=== PATIENT | female | born 1965 | race Caucasian/White ===

== ENCOUNTER → 2019-12-08 09:56 | Outpatient (CLI) | payer BC, SELFPAY ==
--- NOTE | 2019-12-08 | CA_ITS ---
APPROVED REPORT Exam: Pharmacologic Technologist: Wendy Jackson Ht: 5 ft 4 in Wt: 200 lbs BSA: 1.96 m2 HR: 78 bpm BP: 117/67 mmHg Medical History Medications: Asa,,,,, Gabapentin,,,,, Vitamin C,,,,, Fish Oil,,,,, Losartan,,,,, Calcium,,,,, Diclofenac,,,,, Olanzapine,,,,, PaROXETINE,,,,, Phentermine,,,,, RoSovastatin,,,,, Stress Test Details Test: LEXISCAN HR Resting HR: 77 bpm Max Heart Rate (APMHR): 164 bpm Max HR Achieved: 110 bpm Target HR (85% APMHR): 139 bpm % of APMHR: 67 Recovery HR: 91 bpm BP Resting BP: 117.0/67.0 mmHg Max BP: 150.0/83.0 mmHg Recovery BP: 141.0/82.0 mmHg ECG Clinical Exercise duration: 04:00 min Highest Stage Achieved: Exercise capacity: 1.0 METs Stress ECG Conclusion Resting ECG: Sinus rhythm, right bundle branch block, abnormal. Lexiscan portion complete. Patient complained of shortness of breath, dizziness at peak infusion. Symptoms: Shortness of breath and dizziness at peak infusion. Resolved in recovery. No chest pain. Arrhythmias/Ectopy: Occasional PVC. Occasional PAC. ST-T Changes: Less than 1.[address] depression. Conclusion: Images to follow. Electronically signed by : Gomez Gayle, 12/08/2019 19:08:07
--- NOTE | 2019-12-08 09:58 | CA_ITS ---
APPROVED REPORT EXAM: Comprehensive 2D, Doppler, and color-flow Echocardiogram Painter Drum: Neelima Ortiz CRT Ht: 5 ft 4 in Wt: 206lbs BSA: 1.98 BP: 118/54 mmHg Indications: LEFT MASTECTOMY, BREAST CA 2005, UTERINE CA 2018, HTN,HLD 2D Dimensions LVOT 1.81 cm (M/F) 1.5-2.5 M-Mode Dimensions RVDd 2.01 cm (0.9-2.6) LVDd 4.08 cm (3.5-5.7) LVDs 2.77 cm (3.5-5.7) IVSd 1.70 cm (0.6-1.1) PWd 1.07 cm (0.6-1.1) EF (Teich) 60.80% FS 32.10% EDV (Teich) 73.40 mL ESV (Teich) 28.80 mL LV Diastology E/A Ratio 1.03 Mitral Valve MV A Velocity 83.00 (40-130 cm/s) Left Ventricle Left atrium is mildly enlarged, left ventricle is normal size, mild concentric left ventricular hypertrophy, visually estimated ejection fraction 55% with no regional wall motion abnormality, endocardial surfaces are poorly visualized. Diastolic parameters are inconclusive. Right Ventricle Right atrium and right ventricular normal size and contractility. Aortic Valve Aortic valve is minimally thickened and fibrosed, there is no aortic stenosis or aortic insufficiency. Mitral Valve Mitral valve is grossly normal, there is mild mitral regurgitation. Tricuspid Valve Tricuspid valve is grossly normal, there is mild tricuspid regurgitation. Tricuspid regurgitation jet velocity is inadequate for calculation of the right ventricular systolic pressure. Pulmonic Valve Pulmonic valve is poorly visualized. Great Vessels Aortic root is normal size. Pericardium No significant pericardial effusion noted. Conclusion 1. Mildly enlarged left atrium, normal left ventricular size, mild concentric left ventricular hypertrophy, visually estimated ejection fraction 55% with no regional wall motion abnormality. Diastolic parameters are inconclusive. 2. Mild mitral and tricuspid regurgitation. 3. No significant pericardial effusion noted. Electronically signed by : Gomez Gayle, 12/09/2019 06:20:41
--- NOTE | 2019-12-08 10:55 | NM_ITS ---
APPROVED REPORT Exam: Nuclear Stress Test Indication: CAD, HTN, ANGINA, DYSPNEA, HYPERLIPIDEMIA, FM. HX., C.P., ARISTIDES Patient Location: ANGINA Stress Tech: Wendy Jackson NM Tech:Jessica Singleton, ARRT, RT (R)(N) Ht: 5 ft 4 in Wt: 200 lbs Bra Size: 38C HR: 78 bpm BP: 117/67 mmHg BSA: 1.96 m2 BMI: 34.3 History: CAD, HTN, ANGINA, DYSPNEA, HYPERLIPIDEMIA, FM. HX., C.P., MONISHA Procedure: Patient received a 0.4 mg of intravenous Lexiscan, resting heart rate 78 bpm, resting blood pressure 117/67 mmHg, with Lexiscan maximum heart rate achived was 106 bpm which is Less than 85 % of the maximum predicted heart rate and blood pressure was 150/83 mmHg. SOB Electrocardiogram Resting electrocardiogram showed sinus rhythm right ventricular conduction delay, with Lexiscan there is less than 1.[address] segment depression noted from the baseline EKG. The EKG portion of the Lexiscan Myoview is nondiagnostic. Cardiac Stress and Resting SPECT Images: Cardiac Stress and Resting SPECT images were obtained using technetium 99m Myoview 30.2 mCi stress and 10.80 mCi at rest. Gated SPECT with analysis of segmental wall motion and calculation of the ejection fraction also done. Cardiac stress and resting SPECT images show uniform myocardial activity without segmental perfusion abnormality, computer derived ejection fraction is over 65% with no regional wall motion abnormality, right ventricle is normal size and contractility. Conclusion: 1. The EKG portion of the Lexiscan Myoview is nondiagnostic. 2. No scintigraphic evidence of reversible ischemia seen, computer derived ejection fraction is over 65% with no regional wall motion abnormality, right ventricle is normal size and contractility. 3. Normal Lexiscan Myoview study. Electronically signed by : Gomez Gayle, 12/08/2019 19:16:42
--- NOTE | 2019-12-08 12:42 | HMH.ITSHM ---
Current Home Medications as stated by this patient Dhara Parekh or technical services representative. []ASA DICLOFENAC LOSARTAN PAROXETINE GABAPENTIN ORANZAPINE PHENTERMINE OMEPRAZOLE ROSUVASTATIN VITMAIN C FISH OIL CALCIUM VITAMIN B BIOTIN DICYCLOMINE
== END ==
PROVIDERS: PCP Family Medicine; Visit Provider Internal Medicine Cardiovascular Disease
DX: G47.33 Obstructive sleep apnea (adult) (pediatric) (principal); R06.83 Snoring; R40.0 Somnolence; R06.00 Dyspnea, unspecified; I20.8 Other forms of angina pectoris; I25.10 Atherosclerotic heart disease of native coronary artery without angina pectoris; I25.2 Old myocardial infarction; E78.5 Hyperlipidemia, unspecified; I10 Essential (primary) hypertension; Z82.49 Family history of ischemic heart disease and other diseases of the circulatory system; Z86.718 Personal history of other venous thrombosis and embolism; Z87.891 Personal history of nicotine dependence
CPT/HCPCS: 78452; 93017; 93306; A9502; G0399; J2785

== ENCOUNTER → 2019-12-11 12:17 | Outpatient (CLI) | payer BC, SELFPAY ==
[2019-12-11 13:31] LABS: Alanine Aminotransferase 44 U/L (12-78); Albumin Level 3.6 gm/dL (3.4-5.0); Alkaline Phosphatase 95 U/L (46-116); Aspartate Amino Transferase 27 U/L (15-37); Bilirubin,Direct 0.2 mg/dL (0.0-0.2); Bilirubin,Indirect 0.6 mg/dL (0.0-0.9); Bilirubin,Total 0.8 mg/dL (0.2-1.0); Cholesterol 127 mg/dL (140-200); HDL Cholesterol 42 mg/dL (29-89); LDL Cholesterol 57 mg/dL (0-130); Total Protein,Serum 6.8 gm/dL (6.4-8.2); Triglycerides 139 mg/dL (30-200); VLDL Cholesterol 28 mg/dL (0-40)
== END ==
PROVIDERS: Visit Provider Internal Medicine Cardiovascular Disease
DX: E78.5 Hyperlipidemia, unspecified (principal); I10 Essential (primary) hypertension; I20.8 Other forms of angina pectoris; I25.10 Atherosclerotic heart disease of native coronary artery without angina pectoris; I25.2 Old myocardial infarction; R06.00 Dyspnea, unspecified; R06.83 Snoring; R40.0 Somnolence; Z82.49 Family history of ischemic heart disease and other diseases of the circulatory system; Z86.718 Personal history of other venous thrombosis and embolism; Z87.891 Personal history of nicotine dependence
CPT/HCPCS: 36415; 80061; 80076

== ENCOUNTER 2021-02-08 14:00 | Outpatient (RCR) | payer BC, SELFPAY | END 2021-02-22 16:45 | disposition home or self-care (01) | LOC: PT.CARL 14:00 | PROVIDERS: PCP Family Medicine; Visit Provider Family Medicine | DX: M54.5 Low back pain (principal) | CPT/HCPCS: 97110; 97140; 97163 ==

== ENCOUNTER → 2021-09-27 09:49 | Outpatient (CLI) | payer BC, SELFPAY ==
[2021-09-27 10:28] LABS: Basophils # 0.1 K/mm3 (0-0.2); Basophils % 0.9 % (0.1-2.0); Eosinophils # 0.1 K/mm3 (0.0-0.4); Eosinophils % 1.4 % (0.1-12.0); Hematocrit 40.8 % (37.0-47.0); Hemoglobin 13.7 g/dL (12.2-16.2); Lymphocytes # 2.6 K/mm3 (0.7-4.5); Lymphocytes % 39.8 % (10-50); Mean Corpuscular HGB Conc 33.5 g/dL (31.8-35.4); Mean Corpuscular Hemoglobin 29.3 pg (27.0-31.2); Mean Corpuscular Volume 87.5 fl (81-99); Mean Platelet Volume 8.4 fl (7.4-10.4); Monocytes # 0.4 K/mm3 (0.1-1.0); Monocytes % 6.1 % (1.7-9.3); Neutrophils # 3.4 K/mm3 (1.8-7.8); Neutrophils % 51.7 % (37.0-80.0); Platelet Count 246 K/mm3 (142-424); Red Blood Count 4.67 M/mm3 (4.20-5.40); Red Cell Distribution Width 13.1 % (11.5-17.5); White Blood Count 6.5 K/mm3 (4.8-10.8)
[2021-09-27 10:58] LABS: Alanine Aminotransferase 18 U/L (12-78); Albumin Level 4.2 g/dl (3.5-5.0); Albumin/Globulin Ratio 1.6 (1.1-1.8); Alkaline Phosphatase 85 U/L (38-126); Anion Gap 11.4 mEq/L (5-15); Aspartate Amino Transferase 27 U/L (14-36); Bilirubin,Total 0.9 mg/dl (0.2-1.3); Blood Urea Nitrogen 9 mg/dl (7-17); Calcium 9.3 mg/dl (8.4-10.2); Carbon Dioxide 32 mmol/L (22.0-30.0); Chloride 101 mmol/L (98-107); Estimated Glomerular Filt Rate 64 ml/min (>60); GFR (African American) 78 ML/MIN (>60); Globulin 2.7 g/dL (1.3-3.2); Glucose 87 mg/dl (74-100); Potassium 4.4 mmoL/L (3.5-5.1); Sodium 140 mmol/L (136-145); Total Protein,Serum 6.9 g/dl (6.3-8.2)
[2021-10-03 22:07] LABS: QuantiFERON-TB Gold Plus Negative (Negative)
== END ==
PROVIDERS: Visit Provider Dermatology
DX: L40.0 Psoriasis vulgaris (principal); Z79.899 Other long term (current) drug therapy
CPT/HCPCS: 36415; 80053; 85025; 86480

== ENCOUNTER → 2021-09-27 11:12 | Outpatient (POV) | payer BC, SELFPAY | PROVIDERS: Visit Provider Dermatology | DX: Z00.00 Encounter for general adult medical examination without abnormal findings (principal) ==

== ENCOUNTER → 2022-01-31 08:59 | Outpatient (POV) | payer BC, SELFPAY | PROVIDERS: Visit Provider Dermatology | DX: Z00.00 Encounter for general adult medical examination without abnormal findings (principal) ==

== ENCOUNTER → 2022-09-12 10:08 | Outpatient (POV) | payer BC, SELFPAY | PROVIDERS: Visit Provider Dermatology | DX: Z00.00 Encounter for general adult medical examination without abnormal findings (principal) ==

== ENCOUNTER 2024-06-25 10:34 | Outpatient (CLI) | payer MEDICARE, SELFPAY ==
[2024-06-25 10:46] LABS: MANUAL DIFFERENTIAL MANUAL DIFFERENTIAL (MANUAL DIFF)
[2024-06-25 11:02] LABS: Basophils # 0.2 K/mm3 (0-0.2); Basophils % 2.7 % (0.1-2.0); Eosinophils # 0.2 K/mm3 (0.0-0.4); Hematocrit 40.4 % (37.0-47.0); Hemoglobin 13.4 g/dL (12.2-16.2); Lymphocytes # 1.4 K/mm3 (0.7-4.5); Lymphocytes % 25.1 % (10-50); Mean Corpuscular HGB Conc 33.1 g/dL (31.8-35.4); Mean Corpuscular Hemoglobin 29.8 pg (27.0-31.2); Mean Corpuscular Volume 89.9 fl (81-99); Mean Platelet Volume 8.1 fl (7.4-10.4); Monocytes # 0.3 K/mm3 (0.1-1.0); Monocytes % 4.7 % (1.7-9.3); Neutrophils # 3.6 K/mm3 (1.8-7.8); Neutrophils % 64.4 % (37.0-80.0); Platelet Count 203 K/mm3 (142-424); Red Cell Distribution Width 14.1 % (11.5-17.5); White Blood Count 5.5 K/mm3 (4.8-10.8)
[2024-06-25 11:33] LABS: Alanine Aminotransferase 26 U/L (12-78); Albumin Level 4.1 g/dl (3.5-5.0); Alkaline Phosphatase 65 U/L (38-126); Aspartate Amino Transferase 43 U/L (14-36); Bilirubin,Direct 0.2 mg/dl (0.0-0.4); Bilirubin,Indirect 0.8 mg/dL (0.0-0.9); Bilirubin,Unconjugated 0.8 mg/dL (0.0-1.1); Blood Urea Nitrogen 11 mg/dl (7-17); Calcium 9.5 mg/dl (8.4-10.2); Carbon Dioxide 26 mmol/L (22.0-30.0); Chloride 104 mmol/L (98-107); Cholesterol 182 mg/dl (140-200); Estimated Glomerular Filt Rate 73 ml/min (>60); GFR (African American) 89 ML/MIN (>60); Glucose 113 mg/dl (74-100); HDL Cholesterol 61 mg/dl (40-60); Sodium 137 mmol/L (136-145); Total Protein,Serum 7.6 g/dl (6.3-8.2); Triglycerides 176 mg/dl (30-150); VLDL Cholesterol 35 mg/dL (0-40)
[2024-06-25 11:45] LABS: Direct LDL Cholesterol 77.35 mg/dL (100-129)
[2024-06-25 13:11] LABS: Eosinophils % 1 % (0-3); Lymphocytes % 18 % (10-50); Monocytes % 1 % (2-9); Neutrophils % 80 % (42-76); Platelet Estimate Normal; RBC Morphology Normal; Total Cells Counted 100
== END 2024-06-25 23:59 | disposition home or self-care (01) ==
PROVIDERS: PCP Family Medicine; Visit Provider Nurse Practitioner
DX: I25.10 Atherosclerotic heart disease of native coronary artery without angina pectoris (principal); Z87.891 Personal history of nicotine dependence
CPT/HCPCS: 36415; 80048; 80061; 80076; 85007; 85014; 85018; 85048; 85049

== ENCOUNTER 2024-09-15 09:36 | Outpatient (CLI) | payer MEDICARE, SELFPAY ==
--- NOTE | 2024-09-15 09:41 | CA_ITS ---
APPROVED REPORT EXAM: Comprehensive 2D, Doppler, and color-flow Echocardiogram Wire Steward: Melvi Ram RVT Ht: 5 ft 4 in Wt: 233lbs BSA: 2.09 BP: 127/69 mmHg Indications: ANGINA,CAD,STAR,HTN,LEUNG,EX SMOKER,HLD,LT MASECTOMY 2D Dimensions LA Volume 39.80 mL LA Volume Index 19.04 mL/m2 (M/F) 16-34 M-Mode Dimensions RVDd 2.85 cm (0.9-2.6) LA Diam 3.55 cm (1.9-4.0) LVDd 4.55 cm (3.5-5.7) LVDs 2.80 cm (3.5-5.7) IVSd 1.23 cm (0.6-1.1) PWd 0.72 cm (0.6-1.1) EF (Teich) 68.80% FS 38.50% EDV (Teich) 94.90 mL TAPSE 2.47 (<1.7) ESV (Teich) 29.60 mL LV Diastology E Decel Time 243 (160-240 msec) E/A Ratio 1.1 Aortic Valve KASI Index 1.18 cm2/m2 AoV Peak Mikal. 156.0 (50-130 cm/s) AO Peak GR. 9.70 mmHg AO Mean GR. 5.00 (<5 mmHg) AO VTI 29.6 (18-25 cm) KASI (VTI) 2.52 (2.5-4.5 cm2) Mitral Valve MV E Max Mikal. 90.0 (40-130 cm/s) MV A Velocity 81.0 (40-130 cm/s) E/A Ratio 1.11 MV PHT 71.0 ms Pulmonary Valve PV Peak Velocity 90.0 (50-150 cm/s) Left Ventricle The left ventricle is normal size. The left ventricular systolic function is normal. The left ventricular ejection fraction is within the normal range. There is increased LV wall thickness. There is normal LV segmental wall motion. The left ventricular diastolic function is normal. LVEF is 55%. Right Ventricle The right ventricle is normal size. The right ventricular systolic function is normal. Atria The left atrium size is normal. The right atrium size is normal. There is no Doppler evidence of interatrial shunt. Aortic Valve The aortic valve is mildly thickened. There is no aortic valvular stenosis. No aortic regurgitation is present. Mitral Valve The mitral valve is normal in structure. No evidence of mitral valve stenosis. Trace mitral regurgitation. Tricuspid Valve Tricuspid valve is grossly normal in structure and function. Trace tricuspid regurgitation. There is insufficient TR jet to estimate RVSP. Pulmonic Valve The pulmonary valve is normal in structure. Trace pulmonic regurgitation. Great Vessels The aortic root is normal in size. IVC is normal in size and collapses >50% with inspiration. Pericardium There is no pericardial effusion. Other Information Study Quality: Fair Conclusion Normal biventricular systolic function. No significant valvular stenosis or regurgitation. Electronically signed by : Gay John MD 09/21/2024 02:11:43
== END 2024-09-15 23:59 | disposition home or self-care (01) ==
PROVIDERS: PCP Family Medicine; Visit Provider Nurse Practitioner
DX: R06.02 Shortness of breath (principal); I25.119 Atherosclerotic heart disease of native coronary artery with unspecified angina pectoris; I10 Essential (primary) hypertension; E78.2 Mixed hyperlipidemia
CPT/HCPCS: 93306

== ENCOUNTER 2025-08-20 10:34 | Outpatient (CLI) | payer MEDICARE, SELFPAY ==
--- OUTSIDE RECORDS SUMMARY | 2025-08-20 10:39 | XMS_ITS | Clinical Summary ---
Author Organization [facility] Address [address] [place] [address] Care Team Providers Care Director Of Grants Name Role Phone Bulmaro Landin MD Primary Care Provider [phone] Allergies Active Allergy Reactions Criticality Noted Date Comments Amoxicillin Other - please docum ent in the comment field,Unknown - Patient states they do not know rxn details Low 10/19/2006 nausea/ vomit Codeine Other - please docum ent in the comment field Low 10/19/2006 nausea/ vomit Levofloxacin Other - please docum ent in the comment field Low 07/03/2019 nausea Sulfacetamide Unknown - Patient st ates they do not know rxn details Low 10/19/2006 Medications buPROPion XL (Wellbutrin XL) 150 MG 24 hr tablet TAKE 1 TABLET 1 TIME EACH DAY IN THE MORNING 07/12/2021 Active ascorbic acid (Vitamin C) 500 MG tablet 1 tab(s) orally once a day Active famotidine (Pepcid) 20 MG tablet TAKE 1 TABLET 1 TIME EACH DAY. 07/21/2021 Active losartan (Cozaar) 50 MG tablet 10/18/2017 Active omega-3 (Fish Oil) 1000 MG capsule 1 orally once a day Active omeprazole (PriLOSEC) [address] capsule 1 cap(s) orally once a day Active PARoxetine (Paxil) 20 MG tablet TAKE 1 TABLET 1 TIME EACH DAY. 07/21/2021 Active rosuvastatin (Crestor) 5 MG tablet 1 tab(s) orally once a day Active meloxicam (Mobic) 15 MG tablet TAKE 1 TABLET 1 TIME EACH DAY 08/15/2022 Active OLANZapine (ZyPREXA) 20 MG tablet TAKE 1 TABLET 1 TIME EACH DAY AT BEDTIME 08/15/2022 Active topiramate (Topamax) 100 MG tablet TAKE 1 TABLET 1 TIME EACH DAY AT BEDTIME 08/09/2022 Active metFORMIN, OSM, (Fortamet) 500 MG 24 hr tablet Take 1 tablet (500 mg) by mouth 1 (one) time each day with dinner. Do not crush, chew, or split. Active Vraylar 1.5 MG capsule Take 1 capsule by mouth daily. 01/05/2025 Active gabapentin (Neurontin) 300 MG capsule TAKE THREE CAPSULES 1 TIME EACH DAY 90 capsule 5 07/21/2025 Active Active Problems Problem Noted Date Diagnosed Date Type 2 diabetes mellitus 03/24/2024 Endometrial cancer 08/04/2021 Cancer Staging:Clinical stage from 05/03/2018:FIGO Stage IA(cT1a, cN0, cM0) - Unsigned Malignant neoplasm of left ovary 08/04/2021 Cancer Staging:Clinical stage from 05/03/2018:FIGO Stage IC1, calculated as Stage IC(cT1c1, cN0, cM0) - Unsigned Encounters Date Type Department Care Team Description 07/21/2025 Orders Only [facility] [address] [place] [phone] Haritha Carreno APRN 07/21/2025 Refill [facility] [address] [place] [address] Haritha Carreno, [place] from Last 3 Months Immunizations Immunization Administration Dates Next Due Influenza, injectable, quadrivalent, preservativ e free 08/29/2018 Family History Medical History Relation Name Comments Conversions - Other Other No famil y history of cancer Relation Name Status Comments Other Social History Tobacco Use Types Packs/Day Years Used Date Smoking Tobacco: Former Cigarettes 2 6 2 010 - 2016 Smokeless Tobacco: Never Tobacco Cessation:Counseling Given: Not Answered Alcohol Use Standard Drinks/Week Comments Not Currently 0 (1 standard drink = 0.6 oz pur e alcohol) PHQ-2 Answer Date Recorded Patient Health Questionnaire-2 Score 0 03/23/2025 PHQ-2A Answer Date Recorded Patient Health Questionnaire-2 Score 0 03/16/2023 Comments No Sex and Gender Information Value Date Recorded Sex Assigned at Not on file Legal Sex Female 7:32 PM EDT Gender Identity Not on file Sexual Orientation Not on file Last Filed Vital Signs Vital Sign Reading Time Taken Comments Blood Pressure 123/71 03/23/2025 9:01 AM EDT Pulse 61 03/23/2025 9:01 AM EDT Temperature 36.4 C (97.6 F) 03/23/2025 9:01 AM EDT Respiratory Rate 18 03/23/2025 9:01 AM EDT Oxygen Saturation 98% 03/23/2025 9:01 AM EDT Inhaled Oxygen Concentration - - Weight 87.3 kg (192 lb 7.4 oz) 03/23/2025 9:01 A M EDT Height 162.6 cm (5' 4 ) 03/23/2025 9:01 AM EDT Body Mass Index 33.04 03/23/2025 9:01 AM EDT Plan of Treatment Upcoming Encounters Date Type Department Care Team (Late st Contact Info) Description 03/22/2026 9:30 AM EDT Office Visit [facility] [address] [place] [address] Ev, Haritha S, CRITICAL CARE CNS [address] [place] [place] [address] Health Maintenance Due Date Last Done Comments [facility]-Diabetes: Hemoglobin A1C 1963 [facility]-HIV Screening 1963 [facility]-Hepatitis C Screening 1963 [facility]-Medicare Annual Wellness (AWV) 1963 [facility]-/Child/Adol SDOH Screenings 1963 [facility]-Obesity Intervention 1969 Diabetes: Dental Exam 1973 [facility]- SDOH Screenings 1981 [facility]-Adult SDOH Screenings 1981 [facility]-DTaP,Tdap,and Td Vaccine s (1 - Tdap) 1982 [facility]-Pneumococcal Vaccine: 50 + Years (1 of 2 - PCV) 1982 [facility]-Zoster Vaccines (1 of 2) 1982 CT Colonography 2008 Colonoscopy 2008 FIT-DNA 2008 FIT 2008 FOBT 2008 Sigmoidoscopy 2008 [facility]-Colorectal Cancer Screening 2008 [id number] Vaccine (3 - Moderna risk series) 04/29/2021 04/01/2021, 03/04/2021 [facility]-RSV Vaccine: 60+ Years o r (1 - Risk 60-74 years 1-dose series) 2023 [facility]-Influenza Vaccine (#1) 2025 08/29/2018 [facility]-Depression Screening 03/23/2026 025, 08/18/2022 HPV Vaccines Aged Out No longer eligi ble based on patient's age to complete this topic [facility]-HIB Vaccines Aged Out No longer e ligible based on patient's age to complete this topic [facility]-Hepatitis A Vaccines Aged Out No longer eligible based on patient's age to complete this topic [facility]-IPV Vaccines Aged Out No longer e ligible based on patient's age to complete this topic [facility]-Rotavirus Vaccines Aged Out No lo nger eligible based on patient's age to complete this topic Insurance [employer] MEDICARE Care Teams Director Of Grants Relationship Specialty Start Date End Date Bulmaro Landin MD [address] [place] [address] PCP - General 02/10/22
--- OUTSIDE RECORDS SUMMARY | 2025-08-20 10:39 | XMS_ITS | Encounter Summary ---
Author Organization [facility] Address [address] [id number] Care Team Providers Care Licensed Loan Officer Name Role Phone Bulmaro Landin MD Primary Care Provider [phone] Encounter Details Date Type Department Care Team (Late Contact Info) Description 07/21/2025 Orders Only [facility] [address] [place] [address] Haritha Carreno APRN [address] [facility] [address] [place] [address] Social History Tobacco Use Types Packs/Day Years Used Date Smoking Tobacco: Former Cigarettes 2 6 2 010 - 2016 Smokeless Tobacco: Never Alcohol Use Standard Drinks/Week Comments Not Currently [...] on file Sexual Orientation Not on file documented as of this encounter Miscellaneous Notes * Progress Notes - Haritha Carreno APRN - 07/21/2025 1:18 PM EDT Refill gabapentin clyde [id number] documented in this encounter Plan of Treatment Upcoming Encounters Date Type Department Care Team (Late st Contact Info) Description 03/22/2026 9:30 AM EDT Office Visit [facility] [address] [place] [address] Haritha Carreno, MINING ENGINEERING TECHNOLOGIST [address] [place] [address] documented as of this encounter Visit Diagnoses Not on filedocumented in this encounter Additional Health Concerns Assessment Noted Time A fall risk assessment has been complete d for the patient 03/23/2025 9:05 AM EDT documented as of this encounter Care Teams Licensed Loan Officer Relationship Specialty Start Date End Date Bulmaro Landin MD [address] [place] [address] PCP - General 02/10/22 documented as of this encounter
--- OUTSIDE RECORDS SUMMARY | 2025-08-20 10:39 | XMS_ITS | Encounter Summary ---
Author Organization [facility] Address [address] [id number] Care Team Providers Care Slunk Skin Curer Name Role Phone Bulmaro Landin MD Primary Care Provider [phone] Reason for Visit * Reason Comments Med Refill Encounter Details Date Type Department Care Team (Late Contact Info) Description 07/21/2025 Refill [facility] [address] [place] [address] [place]appsvilleJohnathan burgeri S, MARSHMALLOW MACHINE OPERATOR [address] Sneha [facility] [address] [place] [address] Social History Tobacco Use Types Packs/Day Years Used Date Smoking Tobacco: Former Cigarettes 2 6 2 - 2015 Smokeless Tobacco: Never Alcohol Use Standard Drinks/Week [...] on file documented as of this encounter Plan of Treatment Upcoming Encounters Date Type Department Care Team (Late Contact Info) Description 03/22/2026 9:30 AM EDT Office Visit [facility] [address] [place] [address] [place], Haritha S, MARSHMALLOW MACHINE OPERATOR [address] [place] [facility] [address] [place] [address] documented as of this encounter Visit Diagnoses Not on filedocumented in this encounter Additional Health Concerns Assessment Noted Time A fall risk assessment has been complete d for the patient 03/23/2025 9:05 AM EDT documented as of this encounter Care Teams Slunk Skin Curer Relationship Specialty Start Date End Date Bulmaro Landin MD [address] [place] [address] PCP - General 02/10/22 documented as of this encounter
== END 2025-08-20 23:59 | disposition home or self-care (01) ==
LOC: RT 10:35
PROVIDERS: PCP Family Medicine; Visit Provider Nurse Practitioner
DX: I48.91 Unspecified atrial fibrillation (principal); R94.31 Abnormal electrocardiogram [ECG] [EKG]
CPT/HCPCS: 93225; 93227

== ENCOUNTER 2025-08-24 08:00 | Outpatient (CLI) | payer MEDICARE, SELFPAY ==
--- OUTSIDE RECORDS SUMMARY | 2025-08-24 08:03 | XMS_ITS | Clinical Summary ---
Author Organization [facility] Address [address] [place] [address] Care Team Providers Care Supervisor Finishing Department Name Role Phone Bulmaro Landin MD Primary Care Provider [phone] Allergies Active Allergy Reactions Criticality Noted Date [...] [address] [place] [address] Haritha Carreno APRN 07/21/2025 Refill [facility] [address] [place] [address] Haritha Carreno, [place] from Last 3 Months [...] [address] [place] [address] Ev, Haritha S, CONTACT CENTER ENGINEER [address] [place] [address] Health Maintenance Due Date Last Done Comments [...] 2008 Sigmoidoscopy 2008 [facility]-Colorectal Cancer Screening 2008 [id number] Vaccine (3 - Moderna risk series) 04/29/2021 [...] this topic Insurance [employer] MEDICARE Care Teams Supervisor Finishing Department Relationship Specialty Start Date End Date Bulmaro Landin MD [address] [place] [address] PCP - General 02/10/22
--- OUTSIDE RECORDS SUMMARY | 2025-08-24 08:03 | XMS_ITS | Encounter Summary ---
Author Organization [facility] Address [address] [id number] Care Team Providers Care Mash Grinder Name Role Phone Bulmaro Landin MD Primary Care Provider [phone] Reason for Visit * Reason Comments Med Refill Encounter Details Date Type Department Care Team (Late Contact Info) Description 07/21/2025 Refill [facility] [address] [place] [address] StaleyJohnathan burgeri S, CHISEL TRIMMER [address] [place] [address] Social History Tobacco Use Types [...] [address] [place] [address] [place], Haritha S, CHISEL TRIMMER [address] [facility] [address] [place] [address] documented as of this encounter Visit Diagnoses Not on filedocumented in this encounter Additional Health Concerns Assessment Noted Time A fall risk assessment has been complete d for the patient 03/23/2025 9:05 AM EDT documented as of this encounter Care Teams Mash Grinder Relationship Specialty Start Date End Date Bulmaro Landin MD [address] [place] [address] PCP - General 02/10/22 documented as of this encounter
--- OUTSIDE RECORDS SUMMARY | 2025-08-24 08:03 | XMS_ITS | Encounter Summary ---
Author Organization [facility] Address [address] [id number] Care Team Providers Care Highway Truck Driver Name Role Phone Bulmaro Landin MD Primary Care Provider [phone] Encounter Details Date Type Department Care Team (Late Contact Info) Description 07/21/2025 Orders Only [facility] [address] [place] [address] Haritha Carreno APRN [address] [facility] [address] [place] [address] Social History Tobacco Use Types Packs/Day Years [...] 07/21/2025 1:18 PM EDT Refill gabapentin clyde [id number] documented in this encounter Plan of Treatment Upcoming Encounters Date Type Department Care Team (Late st Contact Info) Description 03/22/2026 9:30 AM EDT Office Visit [facility] [address] [place] [address] Haritha Carreno, USED CAR MAKE READY WORKER [address] [place] [address] documented as of this encounter Visit Diagnoses Not on filedocumented in this encounter Additional Health Concerns Assessment Noted Time A fall risk assessment has been complete d for the patient 03/23/2025 9:05 AM EDT documented as of this encounter Care Teams Highway Truck Driver Relationship Specialty Start Date End Date Bulmaro Landin MD [address] [place] [address] PCP - General 02/10/22 documented as of this encounter
== END 2025-08-24 23:59 | disposition home or self-care (01) ==
LOC: RT 08:00
PROVIDERS: PCP Family Medicine; Visit Provider Nurse Practitioner
DX: I49.1 Atrial premature depolarization (principal); I47.19 Other supraventricular tachycardia; I49.3 Ventricular premature depolarization; I48.91 Unspecified atrial fibrillation; I20.9 Angina pectoris, unspecified
CPT/HCPCS: 93270

== ENCOUNTER 2025-09-17 09:34 | Outpatient (CLI) | payer MEDICARE, SELFPAY ==
--- OUTSIDE RECORDS SUMMARY | 2025-09-17 09:59 | XMS_ITS | Clinical Summary ---
Author Organization [facility] Address [address] [place] [address] Care Team Providers Care Cash Grain Grower Name Role Phone Bulmaro Landin MD Primary Care Provider [phone] Allergies Active Allergy Reactions Criticality Noted Date [...] [address] [place] [address] Haritha Carreno APRN 07/21/2025 Refill [facility] [address] [place] [address] Haritha Carreno, [place] from Last 3 Months [...] [address] [place] [address] Ev, Haritha S, CUT OUT STITCHER [address] [place] [address] Health Maintenance Due Date Last Done Comments UK-Diabetes: Hemoglobin A1C 1963 [facility]-HIV Screening 1963 [facility]-Hepatitis C Screening 1963 [facility]-Medicare Annual Wellness (AWV) 1963 [facility]-Infant/Child/Adol SDOH Screenings 1963 [facility]-Obesity Intervention 1969 Diabetes: Dental Exam 1973 [facility]- SDOH Screenings 1981 [facility]-Adult SDOH Screenings 1981 [facility]-DTaP,Tdap,and Td Vaccine s (1 - Tdap) 1982 [facility]-Pneumococcal Vaccine: 50 + Years (1 of 2 - PCV) 1982 [facility]Y-Zoster Vaccines (1 of 2) 1982 CT Colonography 2008 Colonoscopy 2008 FIT-DNA 2008 FIT 2008 FOBT 2008 Sigmoidoscopy 2008 [facility]-Colorectal Cancer Screening 2008 [id number] Vaccine (3 - Moderna risk series) 04/29/2021 [...] this topic Insurance HU[employer] MEDICARE Care Teams Cash Grain Grower Relationship Specialty Start Date End Date Bulmaro Landin MD [address] [place] [address] PCP - General 02/10/22
--- OUTSIDE RECORDS SUMMARY | 2025-09-17 09:59 | XMS_ITS | Encounter Summary ---
Author Organization [facility] Address [address] [id number] Care Team Providers Care Automobile Bumper Straightener Name Role Phone Bulmaro Landin MD Primary Care Provider [phone] Reason for Visit * Reason Comments Med Refill Encounter Details Date Type Department Care Team (Late Contact Info) Description 07/21/2025 Refill [facility] [address] [place] [address] PattisonJohnathan burgeri S, JIG FILLER [address] [place] [address] Social History Tobacco Use Types [...] [address] [place] [address] [place], Haritha S, JIG FILLER [address] [facility] [address] [place] [address] documented as of this encounter Visit Diagnoses Not on filedocumented in this encounter Additional Health Concerns Assessment Noted Time A fall risk assessment has been complete d for the patient 03/23/2025 9:05 AM EDT documented as of this encounter Care Teams Automobile Bumper Straightener Relationship Specialty Start Date End Date Bulmaro Landin MD [address] [place] [address] PCP - General 02/10/22 documented as of this encounter
--- OUTSIDE RECORDS SUMMARY | 2025-09-17 09:59 | XMS_ITS | Encounter Summary ---
Author Organization Healthcare Address [address] [id number] Care Team Providers Care Intelligence Consultant Name Role Phone Bulmaro Landin MD Primary Care Provider [phone] Encounter Details Date Type Department Care Team (Late Contact Info) Description 07/21/2025 Orders Only [facility] [address] [place] [address] Haritha Carreno APRN [address] [facility] [address] [place] [address] Social History Tobacco Use Types Packs/Day Years [...] 07/21/2025 1:18 PM EDT Refill [email or web address] [phone] documented in this encounter Plan of Treatment Upcoming Encounters Date Type Department Care Team (Late st Contact Info) Description 03/22/2026 9:30 AM EDT Office Visit [facility] [address] [place] [address] Haritha Carreno, [employer] [address] [place] [address] documented as of this encounter Visit Diagnoses Not on filedocumented in this encounter Additional Health Concerns Assessment Noted Time A fall risk assessment has been complete d for the patient 03/23/2025 9:05 AM EDT documented as of this encounter Care Teams Intelligence Consultant Relationship Specialty Start Date End Date Bulmaro Landin MD [address] [place] [id number] PCP - General 02/10/22 documented as of this encounter
[2025-09-17 10:43] LABS: Hematocrit 40.6 % (37.0-47.0); Hemoglobin 13.6 g/dL (12.2-16.2); Immature Granulocytes % 0.4 %; Mean Corpuscular HGB Conc 33.5 g/dL (31.8-35.4); Mean Corpuscular Hemoglobin 28.0 pg (27.0-31.2); Mean Corpuscular Volume 83.5 fl (81-99); Nucleated Red Blood Cells % 0 %; Platelet Count 175 K/mm3 (142-424); Red Blood Count 4.86 M/mm3 (4.20-5.40); Red Cell Distribution Width-SD 35.8 fL; White Blood Count 4.8 K/mm3 (4.8-10.8)
[2025-09-17 11:35] LABS: Albumin Level 3.4 g/dl (3.5-5.0); Chloride 104 mmol/L (98-107)
[2025-09-17 11:36] LABS: Potassium 4.2 mmoL/L (3.5-5.1); Sodium 135 mmol/L (136-145)
[2025-09-17 11:38] LABS: Alanine Aminotransferase 16 U/L (12-78); Alkaline Phosphatase 89 U/L (38-126); Anion Gap 10.2 mEq/L (5-15); Aspartate Amino Transferase 28 U/L (14-36); Bilirubin,Direct 0.1 mg/dl (0.0-0.4); Bilirubin,Indirect 0.8 mg/dL (0.0-0.9); Bilirubin,Total 0.9 mg/dl (0.2-1.3); Bilirubin,Unconjugated 0.8 mg/dL (0.0-1.1); Blood Urea Nitrogen 11 mg/dl (7-17); Carbon Dioxide 25 mmol/L (22.0-30.0); Cholesterol 150 mg/dl (140-200); Creatinine,Serum 0.80 mg/dl (0.52-1.04); Estimated Glomerular Filt Rate 73 ml/min (>60); GFR (African American) 88 ML/MIN (>60); Total Protein,Serum 7.3 g/dl (6.3-8.2); Triglycerides 237 mg/dl (30-150)
[2025-09-17 11:39] LABS: Calcium 9.2 mg/dl (8.4-10.2); Glucose 84 mg/dl (74-100); HDL Cholesterol 56 mg/dl (40-60); Magnesium 1.6 mg/dl (1.6-2.3)
[2025-09-17 11:45] LABS: Free T4 (Free Thyroxine) 0.93 ng/dl (0.78-2.19)
[2025-09-17 12:10] LABS: Thyroid Stimulating Hormone 1.75 uIU/mL (0.465-4.68)
== END 2025-09-17 23:59 | disposition home or self-care (01) ==
LOC: LAB 09:35
PROVIDERS: PCP Family Medicine; Visit Provider Nurse Practitioner
DX: I25.10 Atherosclerotic heart disease of native coronary artery without angina pectoris (principal); I10 Essential (primary) hypertension; E78.5 Hyperlipidemia, unspecified
CPT/HCPCS: 36415; 80048; 80061; 80076; 83735; 84439; 84443; 85025